=== PATIENT | male | born 1990 | race African-American/Black ===

== ENCOUNTER 2018-07-25 21:36 | Emergency (ER) | payer SELFPAY ==
[2018-07-25] MEDS ORDERED: Lidocaine 1% PF 5 ML VIAL ONE (22:50)
== END 2018-07-25 23:58 | disposition home or self-care (01) ==
LOC: ERS 21:36
DX: S56.127A Laceration of flexor muscle, fascia and tendon of right little finger at forearm level, initial encounter (principal); F17.210 Nicotine dependence, cigarettes, uncomplicated; W25.XXXA Contact with sharp glass, initial encounter
CPT/HCPCS: 12002; J2001

== ENCOUNTER 2018-08-06 19:03 | Emergency (ER) | payer SELFPAY | END 2018-08-06 19:58 | disposition home or self-care (01) | LOC: ERS 19:03 | DX: L03.011 Cellulitis of right finger (principal); S56.127D Laceration of flexor muscle, fascia and tendon of right little finger at forearm level, subsequent encounter; F17.210 Nicotine dependence, cigarettes, uncomplicated; W25.XXXD Contact with sharp glass, subsequent encounter | CPT/HCPCS: 99283 ==

== ENCOUNTER 2018-08-10 14:52 | Outpatient (CLI) | payer SELFPAY ==
[2018-08-10 16:19] LABS: Mean Corpuscular HGB CONC 32.7 g/dL (32.0-36.0); Mean Corpuscular Hemoglobin 26.8 pg (27.0-31.0); Mean Corpuscular Volume 81.9 fL (78.0-98.0); Mean Platelet Volume 8.9 fL (7.4-10.4); Platelet Count 205 thou/uL (130-400); RBC Distribution Width 13.4 % (11.5-14.5); Red Blood Cell (RBC) Count 5.22 mill/uL (4.70-6.10); White Blood Cell (WBC) Count 4.1 thou/uL (4.8-10.8)
== END 2018-08-10 14:53 | disposition home or self-care (01) ==
LOC: LABBT 14:52
PROVIDERS: ATTEND Orthopaedic Surgery Hand Surgery
DX: Z01.812 Encounter for preprocedural laboratory examination (principal); S61.216A Laceration without foreign body of right little finger without damage to nail, initial encounter; S64.40XA Injury of digital nerve of unspecified finger, initial encounter
CPT/HCPCS: 85027; 85652

== ENCOUNTER 2018-08-21 07:30 | Day surgery (SDC) | payer SELFPAY ==
[2018-08-10 15:14] VITALS: BMI 22.3
[2018-08-21] MEDS ORDERED: Fentanyl 250 MCG/5 ML VIAL ONE (09:45)
[2018-08-21] MEDS ORDERED: Clindamycin/D5W 600 mg/50 ml Premix Bag ONE (09:50)
[2018-08-21] MEDS ORDERED: Heparin 10,000 UNITS/1 ML VIAL ONE (10:00)
[2018-08-21] MEDS ORDERED: Betamet Acet/Betamet Na Ph 30 MG/5 ML VIAL ONE (10:00)
[2018-08-21] MEDS ORDERED: Lidocaine 2% PF 5 ML VIAL ONE (10:00)
[2018-08-21] MEDS ORDERED: Bupivacaine PF 0.5% 30 ML VIAL ONE (10:00)
[2018-08-21] MEDS ORDERED: Bacitracin Zinc Ointment 30 gm TUBE ONE (10:02)
[2018-08-21] MEDS ORDERED: Ketorolac Tromethamine 30 MG/ML VIAL ONE (13:12)
[2018-08-21] MEDS ORDERED: Fentanyl 100 MCG/2 ML VIAL ONE (13:33)
[2018-08-21] MEDS ORDERED: Ondansetron PF 4 MG/2 ML Vial ONE (14:19)
[2018-08-21] MEDS ORDERED: Lidocaine 1% PF 5 ML VIAL ONE (14:19)
[2018-08-21] MEDS ORDERED: PROPOFOL 200 MG/20 ML VIAL ONE (14:19)
[2018-08-21] MEDS ORDERED: Rocuronium Bromide 10 MG/ML (10ML VIAL) ONE (14:19)
[2018-08-21] MEDS ORDERED: HYDROcodone/Acetaminophen 5/325 mg Tablet ONE (14:26)
--- NOTE | 2018-08-22 15:05 | OP ---
DATE OF PROCEDURE: 08/21/2018 PREOPERATIVE DIAGNOSES: 1. Right small finger zone 2 flexor digitorum profundus laceration complete. 2. Right small finger zone 2 flexor digitorum superficialis laceration. 3. Wound 3 cm right small finger. POSTOPERATIVE DIAGNOSES: 1. Right small finger zone 2 flexor digitorum profundus laceration complete. 2. Right small finger zone 2 flexor digitorum superficialis laceration. 3. Wound 3 cm right small finger. PROCEDURE PERFORMED: 1. Right small finger flexor digitorum profundus repair zone 2. 2. Tenotomy, ulnar aspect, flexor digitorum superficialis sleeve. 3. Tenolysis of flexor digitorum profundus tendon. 4. Tenolysis of flexor digitorum superficialis tendon. 5. Microscopic neuroplasty, ulnar digital nerve . 6. Microscopic conduit grafting for repair, ulnar digital nerve, right small finger. 7. Wound debridement, [address] level. 8. Wound closure, 3.0 cm wound. ESTIMATED BLOOD LOSS: 15 mL. TOURNIQUET TIME: Ninety five minutes. FINDINGS: The patient had a probable slow retraction over 2 to 3 weeks of the tendon into the positions in now what had to be retrieved and brought back into the wound for repair. DESCRIPTION OF PROCEDURE: After successful general endotracheal, the limb was prepped and draped. Time-out done appropriately. The patient then had the zigzag Jina-type incision made centered over the area where there were no other problems. Then, we revealed that the flexor digitorum had ruptured. Once we made the incision, exsanguinated the limb and retracted back into the palm while there were marked adhesions of the flexor digitorum superficialis, so first performed tenotomy in ulnar aspect of flexor digitorum superficialis; secondly, tenolysis of flexor digitorum superficialis from the injury point proximal was accomplished as well as distally. We also could see the patient had by exam and by evaluation of the dissected wound and ulnar nerve laceration with a gap of over 15 mm even with neuroplasty achieved about 5 mm length, so the patient would require later intervention for this problem. For this reason, after we used a Lander blade, tenotomy scissors, and pickups to perform the tenolysis of the flexor digitorum profundus and superficialis, the patient tolerated this well with no evidence of neurovascular bundle damage, but because of the flexor tendon was not in the field between A2 and A3 pulleys, we had to make an incision in the palm zigzag beginning at the base proximal to the A1 corky and then coursing back proximally. Here, we found the flexor digitorum profundus had resected by 1 mm. Now we found the tendon, we did the same distally where the tendon had retracted distally to underneath the A2 corky. By gentle flexion of 30 degrees, the tendons were almost ready to meet when I placed a pin across the proximal remnant to hold in place for repair of both tendon ends, did a running 6-0 Prolene on the back wall. Then, we prepared the flexor digitorum profundus using the Dung 8-strand 4-0 Supramid suture. This all went well with no gap formation whatsoever. Now, we brought the microscope on the field, finished dissecting the neuroplasty to meet the right small finger ulnar side median nerve, ulnar side digital nerve. Then, we repaired this back to the conduit using an 8-0 Nurolon/nylon suture under microscope and had excellent tension. The conduit was 2 mm and fitted well in the skin after we released the tourniquet and performed hemostasis. There was no other abnormality. The wound had been completely debrided, and now we closed all 3 cm area in a single layer with 4-0 nylon interrupted simple pattern. Bulky dressing applied along with a dorsal block splint for flexor tendon repair and the patient left the operating room without evidence of anesthetic or operative complication. Job ID: [id number]
== END 2018-08-21 15:30 | disposition home or self-care (01) ==
LOC: SDC 07:30
PROVIDERS: ATTEND Orthopaedic Surgery Hand Surgery
PROC: 01Q40ZZ Repair Ulnar Nerve, Open Approach (ICD-10-PCS; principal; 2018-08-21)
PROC: 0LM70ZZ Reattachment of Right Hand Tendon, Open Approach (ICD-10-PCS; principal; 2018-08-21)
DX: S64.01XA Injury of ulnar nerve at wrist and hand level of right arm, initial encounter (principal); S66.126A Laceration of flexor muscle, fascia and tendon of right little finger at wrist and hand level, initial encounter; S61.216A Laceration without foreign body of right little finger without damage to nail, initial encounter; Z79.2 Long term (current) use of antibiotics; Z88.0 Allergy status to penicillin; W25.XXXA Contact with sharp glass, initial encounter
CPT/HCPCS: 96374; C9352; J0702; J1644; J1885; J2001; J2405; J2704; J3010; J3490; S0020

== ENCOUNTER → 2018-09-08 | Day surgery (SDC) | payer SELFPAY | LOC: SDC/OP 13:20 | PROVIDERS: ATTEND Orthopaedic Surgery Hand Surgery | DX: S61.207A Unspecified open wound of left little finger without damage to nail, initial encounter (principal); Z53.21 Procedure and treatment not carried out due to patient leaving prior to being seen by health care provider ==

== ENCOUNTER 2018-09-10 13:59 | Day surgery (SDC) | payer SELFPAY, OTHER ==
[2018-09-10] MEDS ORDERED: Fentanyl 250 MCG/5 ML VIAL ONE (14:26)
[2018-09-10] MEDS ORDERED: Bacitracin Zinc Ointment 30 gm TUBE ONE (14:29)
[2018-09-10] MEDS ORDERED: Sodium Chloride 0.9% 10 ML ONE (14:29)
[2018-09-10] MEDS ORDERED: Sodium Chloride 0.9% 20 ML ONE (14:30)
[2018-09-10] MEDS ORDERED: Lidocaine 2% 11 ML SYR ONE (14:43)
[2018-09-10] MEDS ORDERED: Ondansetron PF 4 MG/2 ML Vial ONE (15:29)
[2018-09-10] MEDS ORDERED: Lidocaine 1% PF 5 ML VIAL ONE (15:29)
[2018-09-10] MEDS ORDERED: Ketorolac Tromethamine 30 MG/ML VIAL ONE ×2 (15:29→16:58)
[2018-09-10] MEDS ORDERED: Glycopyrrolate 0.2 MG/ML 5 ML SYRINGE ONE (15:29)
[2018-09-10] MEDS ORDERED: PROPOFOL 200 MG/20 ML VIAL ONE (15:29)
[2018-09-10] MEDS ORDERED: Metoclopramide HCl 10 MG/2 ML VIAL ONE (15:29)
[2018-09-10] MEDS ORDERED: Bupivacaine HCl 0.5%/Epinephrine 1:200,000/PF 30 ml Vial ONE (16:11)
[2018-09-10] MEDS ORDERED: Bupivacaine PF 0.5% 30 ML VIAL ONE (16:12)
--- NOTE | 2018-09-11 04:44 | OP ---
DATE OF PROCEDURE: 09/10/2018 PREOPERATIVE DIAGNOSIS: Open wound, positive abscess, right small finger after three weeks ago flexor digitorum profundus laceration repair, digital nerve repair. FINDINGS: Mucopurulence along the incision as well as the remnant of the repair was not confluent extending 5 mm in each direction. PROCEDURES PERFORMED: 1. Debridement of open wound to include skin, fascia, abscess cavity as well as the tendon and the deep bony surface. 2. Tendon sheath irrigation with intraoperative catheter inserted inside the tendon sheath and exploration of palm wound. Debridement techniques as follows;. a. Use of [place] blade, tenotomy scissors, Adson's curette and 11 blade knife. b. Excisional. c. Findings, mucopurulence was seen along the tendon, requiring tenotomy of the tendon flexor digitorum profundus proximal to the laceration repair. 3. Palmar exploration. Findings, seen no gross infection. DESCRIPTION OF PROCEDURE: After successful general LMA technique, the limb was prepped and draped. The patient had 20 mL of 0.5% Marcaine without epinephrine given to him in total. We then were able to exsanguinate the limb, inflated tourniquet to 250 mmHg pressure. The previous incision had a 2 cm x 1 cm opening, so this was extended distally and proximally along the ulnar border of small finger until we could find the mucopurulence as described above. It was thick, pasty and malodorous. Greenish gamez was seen. We removed this, grossly performed the tenotomy of tendon which left it probably too short for related repair. With respect to neurovascular bundle on each side, we descended some scarring over the nerve tendon junction, but otherwise, the ulnar side was intact as was the radial side. We made open incision in pollicis. The infection tracked somewhat underneath the A2 corky. We found proximal A3 corky. The palm had no evidence of gross infection. 3 L of Pulsavac and normal saline with antibiotic inside were used to irrigate both wounds with approximately 1 L in the proximal wound, 2 in the distal wound. We then used another 500 mL of which 250 was in for tendinous sheath irrigation from the distal A1 all the way to proximal. The patient responded to this well, and had the irrigation completed without closure of wound, but did close the secondary wound which was in the palm with 4-0 nylon. The patient then left the operating room in a bulky dressing. Culture sent of the palm wound and the finger wound without evidence of anesthetic or operative complication. Job ID: [id number]
--- NOTE | 2018-09-13 06:09 | PQF ---
[facility] POST DISCHARGE CLINICAL DOCUMENTATION IMPROVEMENT CLARIFICATION FORM l Todays Date: 09/13/18 l Patients Name JEANNINE RANKIN l l Admit Date 09/10/18 l Disch Date 09/10/18 Cocoa Roaster Name Castillo Jiménez Email: [email or web address] Cell: [phone] To be completed by Cocoa Roaster: Present Clinical Indicators - Signs / Symptoms Results and Location in Medical Record [ ] Documentation of: [ ] [ ] Documentation of: [ ] [ ] Documentation of: [ ] [ ] Documentation of: [ ] [ ] Risks [ ] [ ] [ ] Treatment [ ] Open wound of right small finger Query for area (sq cm) of debridement. [ ] [ ] To be completed by Physician: SUNITHA PHILIP The documentation in this patients record requires clarification to ensure coding compliance and accuracy. Check the appropriate box and include in your discharge summary. [ ] [ ] [ ] [ ] Please check this box if this does not apply to this patient [ ] Unable to determine [ ] Other diagnosis: Review the following information and exercise your independent professional judgment in responding to the clarification. Based upon the clinical findings, risk factors, and treatment, please clarify if you are treating one of the above probable or suspected diagnoses. Physician Signature: Date Time MTDD
== END 2018-09-10 17:45 | disposition home or self-care (01) ==
LOC: SDC 13:59
PROVIDERS: ATTEND Orthopaedic Surgery Hand Surgery
PROC: 0LB70ZZ Excision of Right Hand Tendon, Open Approach (ICD-10-PCS; principal; 2018-09-10)
PROC: 0L870ZZ Division of Right Hand Tendon, Open Approach (ICD-10-PCS; principal; 2018-09-10)
DX: T81.42XA Infection following a procedure, deep incisional surgical site, initial encounter (principal); L02.511 Cutaneous abscess of right hand; B95.62 Methicillin resistant Staphylococcus aureus infection as the cause of diseases classified elsewhere; B96.89 Other specified bacterial agents as the cause of diseases classified elsewhere; F17.200 Nicotine dependence, unspecified, uncomplicated; Z79.2 Long term (current) use of antibiotics; Z88.0 Allergy status to penicillin; Z98.890 Other specified postprocedural states
CPT/HCPCS: 87070; 87076; 87077; 87186; 87205; J0670; J1885; J2001; J2405; J2704; J2765; J3010; J3490; S0020

== ENCOUNTER 2018-09-17 14:43 | Day surgery (SDC) | payer SELFPAY ==
[2018-09-14 11:28] VITALS: BMI 22.3
[2018-09-17] MEDS ORDERED: Clindamycin/D5W 600 mg/50 ml Premix Bag ONE (15:13)
[2018-09-17 16:01] LABS: #Lymphocytes 1.4 thou/uL (1.20-3.40); #Monocytes 0.4 thou/uL (0.11-0.59); #Neutrophils 3.4 thou/uL (1.40-6.50); %Basophils 0.3 % (0.0-1.0); %Eosinophils 0.5 % (0.0-10.0); %Lymphocytes 26.1 % (21.0-51.0); %Monocytes 8.1 % (0.0-10.0); Hemoglobin 13.4 g/dL (14.0-18.0); Mean Corpuscular HGB CONC 31.6 g/dL (32.0-36.0); Mean Corpuscular Hemoglobin 26.7 pg (27.0-31.0); Mean Corpuscular Volume 84.6 fL (78.0-98.0); Mean Platelet Volume 8.4 fL (7.4-10.4); Platelet Count 190 thou/uL (130-400); RBC Distribution Width 12.7 % (11.5-14.5); White Blood Cell (WBC) Count 5.2 thou/uL (4.8-10.8)
== END 2018-09-17 18:45 | disposition home or self-care (01) ==
LOC: SDC 14:43
PROVIDERS: ATTEND Orthopaedic Surgery Hand Surgery
DX: L08.9 Local infection of the skin and subcutaneous tissue, unspecified (principal); S61.216A Laceration without foreign body of right little finger without damage to nail, initial encounter; F17.200 Nicotine dependence, unspecified, uncomplicated; Z53.29 Procedure and treatment not carried out because of patient's decision for other reasons; Z79.2 Long term (current) use of antibiotics; Z88.0 Allergy status to penicillin; Z98.890 Other specified postprocedural states
CPT/HCPCS: 36415; 85025; J3490

== ENCOUNTER 2018-09-21 07:42 | Day surgery (SDC) | payer SELFPAY, OTHER ==
[2018-09-21] MEDS ORDERED: Fentanyl 100 MCG/2 ML VIAL ONE ×4 (10:15→12:33)
[2018-09-21] MEDS ORDERED: Sodium Chloride 0.9% 0 ML ONE (10:18)
[2018-09-21] MEDS ORDERED: Thrombin 5000 UNITS/5 ML VIAL ONE (10:18)
[2018-09-21] MEDS ORDERED: Bupivacaine PF 0.5% 30 ML VIAL ONE (10:18)
[2018-09-21] MEDS ORDERED: Bacitracin Zinc Ointment 30 gm TUBE ONE (10:18)
--- NOTE | 2018-09-21 12:20 | OP ---
DATE OF PROCEDURE: 09/21/2018 PREOPERATIVE DIAGNOSIS: 5 cm open with 2 mm gap. FINDINGS: No gross infection. PROCEDURE PERFORMED: 1. Debridement of right small finger wound. 2. Closure of 5 cm complex right small finger wound. TOURNIQUET TIME: None. BLOOD LOSS: Less than or equal to 10 mL. INJECTABLE: Yes, 10 mL of 0.5% Marcaine. INDICATIONS: The patient had a tendon repair approximately 4 weeks ago. Developed infection which required drainage of abscess in 2 prior attempts to close the wound, the patient left the hospital, so he returns today to try to debride the wound, get it to heal and then later on, consider a second-stage procedure. DESCRIPTION OF PROCEDURE: After successful general endotracheal anesthesia, the limb was prepped and draped. He then had a time-out performed, underwent 10 mL of 0.5% Marcaine block at metacarpophalangeal joint level and began the wound care. First, we debrided the wound edges and undermined them approximately 5 mm on either side. Then, we were able to resect the 1 mm circumferentially and used a curette to debride the wound edges along with the tenotomy scissors. We then performed excisional technique debridement and this carried down to the tendon sheath level but did not include bone or joint. There was no gross infection found whatsoever and there was only some wound edge necrosis which we resected. We then irrigated with 500 mL of normal saline bulb syringe pressure. We closed the wound with interrupted 4-0 and 3-0 nylon mixed simple sutures and had excellent apposition with no exposed tendon. The patient left the operating room. After visualized defect, the tendon was no longer intact for FDP repair and that the nerve graft was no longer available either. This will necessitate another staged procedure once this heals if he wants to pursue the return of function. Job ID: [id number]
[2018-09-21] MEDS ORDERED: Ketorolac Tromethamine 30 MG/ML VIAL ONE ×2 (12:33→15:17)
[2018-09-21] MEDS ORDERED: Dexamethasone 20 MG/5 ML VIAL ONE (15:17)
[2018-09-21] MEDS ORDERED: Ondansetron PF 4 MG/2 ML Vial ONE (15:17)
== END 2018-09-21 14:17 | disposition home or self-care (01) ==
LOC: SDC 07:42
PROVIDERS: ATTEND Orthopaedic Surgery Hand Surgery
PROC: 0HQGXZZ Repair Left Hand Skin, External Approach (ICD-10-PCS; principal; 2018-09-21)
DX: S61.207A Unspecified open wound of left little finger without damage to nail, initial encounter (principal); X58.XXXA Exposure to other specified factors, initial encounter
CPT/HCPCS: J1100; J1885; J2405; J3010; J3370; J3490; S0020